=== PATIENT | female | born 1965 | race Hispanic/Latino ===

== ENCOUNTER 2019-11-04 01:03 | Emergency (ER) | payer BC ==
--- NOTE | 2019-11-04 01:07 | Emergency Department Note ---
History of Present Illnes History of Present Illness History of Present Illness This is a 54 year old female LEFT PRIOR TO BEING SEEN . Historian: Patient Arrival Mode: Car Past Medical/Family History Physician Review I have reviewed the patient's past medical and family history. Any updates have been documented here. Physical Exam Physical Exam CONSTITUTIONAL HENT EYES NECK PULMONARY CARDIOVASCULAR GASTROINTESTINAL GENITOURINARY SKIN MUSCULOSKELETAL NEUROLOGICAL PSYCHOLOGICAL Assessment & Plan Depart Disposition: ELOPED Physician Attestation Provider Attestation LEFT BEFORE BEING SEEN CELESTE WILLIS MD Nov 04, 2019 01:07
== END 2019-11-04 01:50 | disposition left against medical advice (07) ==
LOC: FSED 01:08
DX: R11.10 Vomiting, unspecified (principal)